=== PATIENT | female | born 1995 | race Caucasian/White ===

== ENCOUNTER 2025-01-03 13:34 | Outpatient (CLI) | payer OTHER ==
[2025-01-03 12:37] VITALS: BP 109/66
[2025-01-03] MEDS ORDERED: RINGERS SOLUTION,LACTATED 1,000 ML IV SCH (13:45)
[2025-01-03 14:10] LABS: URINE APPEARANCE Clear; URINE BACTERIA 2478.0 uL (0.0-1933); URINE BILIRRUBIN Negative (NEGATIVE); URINE BLOOD Negative; URINE COLOR Yellow; URINE EPITHELIAL CELLS 83.3 uL (0.0-38.8); URINE GLUCOSE Negative (NEGATIVE); URINE KETONE Negative (NEGATIVE); URINE LEUKOCYTE Small; URINE NITRATE Negative; URINE PROTEIN Trace (NEGATIVE); URINE RBC 7.7 uL (0.0-20.8); URINE UROBILINOGEN 0.2 E.U./dl; URINE WBC 57.9 uL (0.0-23.2)
[2025-01-03 14:21] LABS: BASO % 0.5 % (0.1-1.2); EOS # 0.11 (0.04-0.54); EOS % 1.3 % (0.7-7.0); LYMPH # 1.36 (1.18-3.74); LYMPH % 15.6 % (19.3-53.1); MEAN PLATELET VOLUME 10.00 fl (9.4-12.4); MONO # 0.56 (0.24-0.82); MONO % 6.4 % (4.7-12.5); NEUT # 6.61 (1.56-6.13); NEUT % 75.7 % (34.0-71.1); RED CELL DISTRIBUTION WIDTH 13.1 % (11.6-14.4)
[2025-01-03 14:46] LABS: TYPE CELLS SQUAMOUS; URINE CAST 0.73 uL (0.0-1.40)
[2025-01-03 15:37] VITALS: BP 98/63
[2025-01-03 19:38] VITALS: BP 90/57; O2SAT 96
[2025-01-03 23:40] VITALS: BP 93/62
[2025-01-04 00:25] VITALS: BP 93/62
== END 2025-01-03 23:28 | disposition home or self-care (01) ==
LOC: OBS/DEL 13:34
PROVIDERS: Obstetrics & Gynecology; ATTEND Obstetrics & Gynecology
DX: O26.892 Other specified pregnancy related conditions, second trimester (principal); Z3A.22 22 weeks gestation of pregnancy